=== PATIENT | male | born 1975 | race Caucasian/White ===

== ENCOUNTER 2025-01-25 19:58 | Emergency (ER) | payer OTHER, SELFPAY ==
[2025-01-25 20:00] VITALS: BP 145/91; PULSE 96; RESP 18; TEMP 36.8; O2SAT 100; BMI 24.8
--- NOTE | 2025-01-25 20:34 | PC.NURSE ---
Attempted to bring pt to room 2,he was not in the lobby,looked outside in the parking lot as well. I did not see him there. We called the phone number on file,no answer. Will attempt to look for him again in lobby
== END 2025-01-25 20:57 | disposition left against medical advice (07) ==
PROVIDERS: Emergency Provider Student in an Organized Health Care Education/Training Program
CPT/HCPCS: 99281